=== PATIENT | female | born 1960 | race Caucasian/White ===

== ENCOUNTER 2018-04-11 21:55 | Emergency (ER) | payer OTHER, SELFPAY ==
[2018-04-11 22:04] VITALS: BP 152/89; PULSE 93; RESP 23; TEMP 37.1; O2SAT 96
[2018-04-11 22:15] VITALS: PULSE 93; RESP 23; TEMP 37.1; O2SAT 96; BMI 83.9
[2018-04-11 22:30] VITALS: BP 128/70; PULSE 82; RESP 23; O2SAT 95
--- NOTE | 2018-04-11 22:49 | DI.RAD.S_ITS ---
PROCEDURE: XR CHEST 2V INDICATIONS: sob, cough, wheeze on right TECHNIQUE: 2 views of the chest were acquired. COMPARISON: None. FINDINGS: Surgical changes and devices: None. Lungs and pleura: No pleural effusions or pneumothorax. Lungs are clear. Mediastinum: Mediastinal contours are normal. Heart size is normal. Bones and chest wall: No suspicious bony abnormalities. Soft tissues appear unremarkable. IMPRESSION: No acute cardiopulmonary disease. Dictated by: Luisana Mendosa M.D. on 04/12/2018 at 9:06 Approved by: Luisana Mendosa M.D. on 04/12/2018 at 9:06
--- NOTE | 2018-04-11 22:50 | ED_ITS ---
HPI - SOB/Dyspnea General Chief Complaint: Shortness of Breath/Dyspnea Stated Complaint: trouble breathing Time Seen by Provider: 04/11/18 22:34 Source: patient and family () Mode of arrival: ambulatory Limitations: no limitations History of Present Illness This is a 58-year-old female who comes to the emergency department with complaint of shortness of breath. Patient states symptoms started about the 19th she just felt sort of weird in her chest. She states started getting worse on the 20th Um and has continued to get worse. She feels short of breath , she has had a cut productive cough sometimes with clear sputum. Other times it is a dry cough. She has been a little bit hoarse. She has not had any fevers, no body aches. She has had some very mild edema in her lower extremities. She states it is little bit hard for her to lay flat. She has had a little bit of upper respiratory symptoms with some postnasal drip but no nasal congestion. She states today she was cooking with her family Um is around a lot of spices in the seem to exacerbate her symptoms. 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 She denies any past medical history. She states that she sees her doctor for some obesity. She has had a complete hysterectomy and her tonsils out but no other surgeries. She does smoke a pack of cigarettes every 1-2 days. Related Data Previous Rx's Medication Instructions Recorded prednisone 40 mg PO DAILY 3 Days #6 tab 04/11/18 Review of Systems Review of Systems All systems reviewed & are unremarkable except as noted in HPI and below Constitutional Denies body ache(s), Denies chills, Denies fever(s), Denies lethargy, Denies night sweats and Denies weakness Cardiovascular Denies chest pain, Denies syncope, Reports edema (Both legs), Denies irregular heart rhythm, Denies lightheadedness, Denies palpitations, Reports dyspnea, Reports dyspnea on exertion and Denies orthopnea Respiratory Denies change in phlegm color, Reports chest congestion, Reports cough, Denies hemoptysis, Denies pain on inspiration, Denies pain with cough, Reports dyspnea , Reports dyspnea on exertion, Denies stridor and Denies wheezing Gastrointestinal Gastrointestinal: Denies abdominal pain, Denies change in bowel habits, Denies diarrhea, Denies nausea and Denies vomiting Genitourinary Denies hematuria, Denies dysuria, Reports urinary incontinence (With cough) and Denies urinary urgency Neurologic Denies syncope and Denies weakness Endocrine Denies palpitations Allergic/Immunologic Denies wheezing PFSH Medical History Tobacco use (Acute) Surgical History Status post complete hysterectomy (Acute) Social History Smoking Status: Current every day smoker Exam Narrative Exam Narrative: GEN: well nourished, well appearing female, alert and oriented x 3, patient appears to be in mild distress. HEENT: Atraumatic, pupils are equal round reactive to light, extraocular movements are intact, nares are clear, TMs are clear with no fluid, there is no conjunctival pallor. Throat has some cobblestone without any exudates, erythema , tonsillar enlargement or uvular deviation HEART: Regular rate and rhythm without murmur, clicks, rubs. No edema bilateral lower extremities. LUNGS:Lungs are slightly decreased bilaterally, patient has wheeze and expiratory on the right upper and lower, she has some mild rales in the bases. chest moves symmetrically. Patient has some tachypnea that is mild. She speaks in full sentences. ABD:bowel sounds normal, soft, non-tender, no guarding, rebound, rigidity, no masses noted, no hepatosplenomegaly MSCL: Non-tender, no muscle atrophy, muscles strength 5/5 upper and lower extremities, full range of motion, normal gait NEURO:CN 2-12 intact, sensation normal Initial Vital Signs Initial Vital Signs: Vital Signs Temperature 98.8 F 04/11/18 22:04 Pulse Rate 93 H 04/11/18 22:04 Respiratory Rate 23 04/11/18 22:04 Blood Pressure 152/89 H 04/11/18 22:04 Pulse Oximetry 96 04/11/18 22:04 Course Orders Ordered: ED Orders 04/11/18 22:48 Consult to Respiratory Therapy Evaluate & Treat EKG-12 Lead Stat 04/11/18 22:49 XR chest 2V Stat 04/11/18 23:00 B Type Natriuretic Peptide Stat Basic Metabolic Panel Stat Complete Blood Count AUTO DIFF Stat Lactate (Lactic Acid) Stat Magnesium Stat Procalcitonin Stat Troponin & CK Cardiac Panel Stat Discontinued Medications Albuterol (Ventolin Hfa Prepack) 1 box MISC SEEINSTR ONE Stop: 04/11/18 23:48 Last Admin: 04/11/18 23:55 Dose: 1 box Albuterol/Ipratropium (Duoneb) 3 ml INH NOW ONE Stop: 04/11/18 22:47 Last Admin: 04/11/18 22:56 Dose: 3 ml Methylprednisolone (Solu-Medrol 125 Mg Vial) 125 mg IV NOW ONE Stop: 04/11/18 22:47 Last Admin: 04/11/18 23:04 Dose: 125 mg Vital Signs - 8 hr 04/11/18 22:04 04/11/18 22:15 04/11/18 22:30 Temperature 98.8 F 98.8 F Pulse Rate 93 H 93 H 82 Respiratory Rate 23 23 23 Blood Pressure Blood Pressure [Right Arm] 152/89 H 128/70 Pulse Oximetry 96 96 95 04/11/18 22:57 04/12/18 00:06 Temperature 98.8 F Pulse Rate 85 88 Respiratory Rate 20 Blood Pressure 140/85 Blood Pressure [Right Arm] Pulse Oximetry 95 94 MDM - SOB/Dyspnea Differential Diagnosis Likely acute exacerbation of chronic obstructive airways disease, congestive heart failure, community acquired pneumonia, pulmonary embolism and other ( bronchitis) Lab Data Attestation: I reviewed the patient's lab results. Result diagrams: 04/11/18 23:00 04/11/18 23:00 Lab Results 04/11/18 04/11/18 04/11/18 Range/Units 23:00 23:00 23:00 WBC 9.2 (4.5-11.0) X10^3/uL RBC 5.49 H (4.0-5.2) X10^6/uL Hgb 15.9 (12.0-16.0) g/dL Hct 48.1 H (36-46) % MCV 87.6 (80-100) fL MCH 29.0 (26-34) PG MCHC 33.1 (30-36) % RDW 14.4 (11.6-14.8) % Plt Count 214 (150-400) X10^3/uL Neut % (Auto) 60.1 (50-75) % Lymph % (Auto) 27.0 (25-40) % Oxford % (Auto) 10.8 (3-14) % Eos % (Auto) 1.4 L (2-4) % Baso % (Auto) 0.7 (0-2) % Neut # (Auto) 5500 (0588-3337) /uL Sodium 143 (137-145) mmol/L Potassium 4.1 (3.4-5.1) mmol/L Chloride 103 (98-107) mmol/L Carbon Dioxide 29 (22-32) mmol/L BUN 18 H (7-17) mg/dL Creatinine 0.80 (0.52-1.04) mg/dL Estimated GFR > 60.0 (>60) mL/min BUN/Creatinine Ratio 22.5 H (6-22) Glucose 102 H (70-100) mg/dL Lactate (0.7-2.1) mmol/L Calcium 9.4 (8.4-10.2) mg/dL Magnesium 2.0 (1.6-2.3) mg/dL Total Creatine Kinase 120 (30-135) U/L CK-MB (CK-2) 0.82 (<2.37) ng/mL CK-MB (CK-2) Rel Index 0.7 L (1.5-5.0) % Troponin I < 0.012 (0.01-0.034) ng/mL B-Natriuretic Peptide < 100 (<100) Procalcitonin < 0.05 (<0.5) ng/mL 04/11/18 Range/Units 23:00 WBC (4.5-11.0) X10^3/uL RBC (4.0-5.2) X10^6/uL Hgb (12.0-16.0) g/dL Hct (36-46) % MCV (80-100) fL MCH (26-34) PG MCHC (30-36) % RDW (11.6-14.8) % Plt Count (150-400) X10^3/uL Neut % (Auto) (50-75) % Lymph % (Auto) (25-40) % Oxford % (Auto) (3-14) % Eos % (Auto) (2-4) % Baso % (Auto) (0-2) % Neut # (Auto) (0946-1113) /uL Sodium (137-145) mmol/L Potassium (3.4-5.1) mmol/L Chloride (98-107) mmol/L Carbon Dioxide (22-32) mmol/L BUN (7-17) mg/dL Creatinine (0.52-1.04) mg/dL Estimated GFR (>60) mL/min BUN/Creatinine Ratio (6-22) Glucose (70-100) mg/dL Lactate 1.0 (0.7-2.1) mmol/L Calcium (8.4-10.2) mg/dL Magnesium (1.6-2.3) mg/dL Total Creatine Kinase (30-135) U/L CK-MB (CK-2) (<2.37) ng/mL CK-MB (CK-2) Rel Index (1.5-5.0) % Troponin I (0.01-0.034) ng/mL B-Natriuretic Peptide (<100) Procalcitonin (<0.5) ng/mL Imaging Data Chest x-ray: Attestation: I personally reviewed and interpreted this imaging study as follows: My impression: no infiltrate, no pulmonary edema, no pnuemothorax, normal alignment, no fx. ECG Data Attestation: I personally reviewed and interpreted this ECG as follows: Interpretation: sinus rhythm, rate of 81, qrs of 142, qtc of 416. No ST elevation, p wave in 2, 3 and avF large, v4-v6. MDM Narrative Medical decision making narrative: Patient's chest x-ray does not show any clear infiltrate. Patient was wheezy particularly on her right side which sustained to the initial x-ray. Lab work shows no major changes, and BNP and troponin are normal. Patient had mentioned she had had some slight swelling to extremities and felt worse when lying flat. Wheeze has resolved after neb treatment and she feels much better. Discussed with patient I think she has bronchitis. She has also smoker. Patient is given albuterol inhaler as well as a burst dose of prednisone for 3 days. Plan to have patient follow up outpatient with PCP. Patient is comfortable with the plan. Discharge Plan Departure Patient Disposition: Home Clinical Impression: Bronchitis Discharge Date/Time: 04/12/18 00:08 Interventions: ED Discharge Assessment Last Done: 04/12/18 00:06 Instructions: Acute Bronchitis Activity Restrictions/Additional Instructions: Follow-up with primary care in the next 3-5 days for recheck. Use albuterol 1 2 puffs every 4 hr as needed for wheezing or shortness of breath. Take steroids until completely gone. Return to the emergency department for fevers greater than 100.4, worsening shortness of breath, chest pain, nausea or persistent vomiting, new swelling of her lower extremities or other new or concerning symptoms. Prescriptions: New prednisone 20 mg tablet 40 mg PO DAILY 3 Days Qty: 6 RF: 0
[2018-04-11] MEDS: ALBUTEROL/IPRATROPIUM 3 ML AMPUL INH (22:56)
[2018-04-11 22:57] VITALS: PULSE 85; O2SAT 95
[2018-04-11] MEDS: methylPREDNISolone 125 MG/2 ML VIAL IV (23:04)
[2018-04-11 23:09] LABS: Add Manual Diff / Slide Review NO; Basophils Percent Auto 0.7 % (0-2); Eosinophils Percent Auto 1.4 % (2-4); Hematocrit 48.1 % (36-46); Hemoglobin 15.9 g/dL (12.0-16.0); Mean Corpuscular HGB Conc 33.1 % (30-36); Mean Corpuscular Volume 87.6 fL (80-100); Monocytes Percent Auto 10.8 % (3-14); Neutrophils Absolute Auto 5500 /uL (1500-7000); Neutrophils Percent Auto 60.1 % (50-75); Platelet Count 214 X10^3/uL (150-400); Red Blood Cell Count 5.49 X10^6/uL (4.0-5.2); Red Cell Distribution Width 14.4 % (11.6-14.8); White Blood Cell Count 9.2 X10^3/uL (4.5-11.0)
[2018-04-11 23:23] LABS: BUN Creatinine Ratio 22.5 (6-22); Blood Urea Nitrogen 18 mg/dL (7-17); Calcium 9.4 mg/dL (8.4-10.2); Carbon Dioxide 29 mmol/L (22-32); Chloride 103 mmol/L (98-107); Creatine Kinase 120 U/L (30-135); Estimated Glomerular Filt Rate > 60.0 mL/min (>60); Glucose 102 mg/dL (70-100); HEMOLYSIS < 15 (0-50); Potassium 4.1 mmol/L (3.4-5.1); Sodium 143 mmol/L (137-145)
[2018-04-11 23:26] LABS: B Type Natriuretic Peptide < 100 (<100)
[2018-04-11 23:36] LABS: Troponin I < 0.012 ng/mL (0.01-0.034)
[2018-04-11 23:37] LABS: Procalcitonin < 0.05 ng/mL (<0.5)
[2018-04-11 23:38] LABS: CKMB % Relative Index 0.7 % (1.5-5.0); Creatine Kinase MB 0.82 ng/mL (<2.37)
[2018-04-11] MEDS: ALBUTEROL HFA PREPACK 1 BOX MISC (23:55)
[2018-04-12 00:06] VITALS: BP 140/85; PULSE 88; RESP 20; TEMP 37.1; O2SAT 94
== END 2018-04-12 00:08 | disposition home or self-care (01) ==
PROVIDERS: Emergency Provider Emergency Medicine
DX: J40 Bronchitis, not specified as acute or chronic (principal)
CPT/HCPCS: 36591; 71046; 80048; 82550; 82553; 83605; 83735; 83880; 84145; 84484; 85025; 93005; 94640; 96374; 99283; 99285; J2930

== ENCOUNTER → 2023-04-23 18:46 | Outpatient (CLI) | payer OTHER, SELFPAY ==
--- NOTE | 2023-04-23 | DI.MRI.S_ITS ---
PROCEDURE: MR ANKLE RT WO CON INDICATIONS: INJURY RIGHT ANKLE TECHNIQUE: Noncontrast sagittal T1 spin echo and T2 fast spin echo with fat saturation, axial proton density fast spin echo and T2 fast spin echo with fat saturation, coronal T1 spin echo and T2 fast spin echo with fat saturation through the ankle/hindfoot. COMPARISON: None. FINDINGS: Image quality: Excellent. Bones and joints: There is mild osseous edema within the medial talus without a focal fracture line that may be related to traction trabecular bone injury or an osseous contusion osseous edema is also seen within the cuboid with suspected incomplete fracture of the distal plantar aspect. Mild osseous edema is seen at the 4th meta tarsal with some osseous irregularity at the metatarsal base that could represent a nondisplaced fracture. Moderate degenerative changes are seen at the 2nd tarsometatarsal joint with subchondral cystic changes and edema. No hindfoot coalitions. Focal high-grade cartilage loss is seen at the medial aspect of the mortise joint with mild adjacent edema. Nonedematous plantar calcaneal enthesophyte is present. Medial structures: Low-grade sprain of the deep fibers of the deltoid ligament. The spring ligament components are intact. Mild distal posterior tibialis tendinosis and tenosynovitis. The flexor digitorum longus and flexor hallucis longus tendons are intact. The posterior tibial neurovascular bundle appears normal within the tarsal tunnel, without extrinsic mass effect. Lateral structures: There is probable complete tearing of the anterior talofibular ligament and calcaneofibular ligament. Low-grade sprain of the posterior talofibular ligament. The anterior and posterior tibiofibular ligaments appear intact. There is moderate tendinosis and mild tenosynovitis of the peroneus brevis and longus tendons. The sinus tarsi demonstrates normal fatty signal. Anterior structures: The tibialis anterior, extensor hallucis longus, and extensor digitorum longus tendons appear intact. The dorsal talonavicular ligament appears intact. Posterior and plantar structures: Achilles tendon is intact there is thickening of the proximal plantar fascia with trace adjacent edema that may indicate acute on chronic plantar fasciitis. A nonedematous plantar calcaneal enthesophyte is present. No abductor digiti quinti muscle atrophy to suggest Pitts neuropathy. IMPRESSION: 1. Osseous edema and suspected incomplete fracture within the cuboid. Osseous edema within the adjacent 4th metatarsal base may be secondary to an osseous contusion or nondisplaced fracture. 2. Mild osseous edema is seen at the medial talus that may be secondary to traction trabecular bone injury or an osseous contusion. No focal fracture in this location. 3. Low-grade sprain of the deltoid ligament. 4. Complete tearing of the anterior talofibular ligament and calcaneofibular ligament. Low-grade sprain of the posterior talofibular ligament. 5. Moderate peroneus brevis and longus tendinosis and mild tenosynovitis. 6. Mild distal posterior tibialis tendinosis and tenosynovitis. 7. Mild acute on chronic proximal plantar fasciitis. No focal fascial tear. Approved by: Joseph Way M.D. on 04/24/2023 at 9:51
== END ==
LOC: MRI 18:48
PROVIDERS: PCP Family Medicine; Referring Provider Family Medicine; Visit Provider Family Medicine
DX: S99.811S Other specified injuries of right ankle, sequela (principal); S93.421A Sprain of deltoid ligament of right ankle, initial encounter; S93.491A Sprain of other ligament of right ankle, initial encounter; S93.411A Sprain of calcaneofibular ligament of right ankle, initial encounter; M65.871 Other synovitis and tenosynovitis, right ankle and foot; M72.2 Plantar fascial fibromatosis; R60.0 Localized edema; W10.8XXS Fall (on) (from) other stairs and steps, sequela
CPT/HCPCS: 73721

== ENCOUNTER 2023-07-31 22:46 | Emergency (ER) | payer OTHER, SELFPAY ==
[2023-07-31 22:50] VITALS: BP 179/86; PULSE 91; RESP 18; TEMP 36.2; O2SAT 100; BMI 42.5
--- NOTE | 2023-07-31 23:51 | ED.BACK ---
HPI - Back Pain/Injury General Chief Complaint: Back Pain/Injury Stated Complaint: Severe pain back ribs from cough Time Seen by Provider: 07/31/23 23:24 Source: patient History of Present Illness HPI Narrative: 63-year-old female presents for left-sided rib pain. Patient reports upper respiratory infection several weeks ago and thinks she may have strained her side while coughing. Earlier this evening her pain intensified and she was concerned that she may have dislodged a rib or injured something. Took ibuprofen and CBD gummy prior to arrival. Related Data Allergies Allergy/AdvReac Type Severity Reaction Status Date / Time No Known Drug Allergies Allergy Verified 07/31/23 22:50 Review of Systems Review of Systems Narrative: Negative except as noted above Patient History Medical History Tobacco use Surgical History (Updated 04/11/18 @ 22:55 by Anita Montalvo DO) Status post complete hysterectomy Social History Smoking Status: Current every day smoker Smoking Status: Current every day smoker tobacco type: cigarettes alcohol intake frequency: a few times a week Alcohol type: wine Substance Use Type: marijuana Exam Initial Vital Signs Initial Vital Signs: Vital Signs Temperature 97.2 F L 07/31/23 22:50 Pulse Rate 91 H 07/31/23 22:50 Respiratory Rate 18 07/31/23 22:50 Blood Pressure 179/86 H 07/31/23 22:50 Pulse Oximetry 100 07/31/23 22:50 Oxygen Delivery Method Room Air 07/31/23 22:50 Const: Awake, alert, no acute distress, nontoxic appearing Chest: Isolated tenderness to palpation along lower left ribs along mid axillary line, no crepitus MSK: Atraumatic, full range of motion, pulses equal Skin: Warm, Dry, intact, no rashes Neuro: AO x3, CN II-XII grossly intact, moves all extremities Course Orders Ordered: Discontinued Medications Hydrocodone Bitart/Acetaminophen (Hydrocodone/Acet 5/325 Prepack) 1 bottle MISC DIRECTED ONE Stop: 08/01/23 01:47 Last Admin: 08/01/23 01:52 Dose: Not Given Documented By: GRICELDA Oxycodone HCl (Oxycodone Ir 5 Mg Tablet) 5 mg PO NOW ONE Stop: 07/31/23 23:52 Last Admin: 08/01/23 00:03 Dose: 5 mg Documented By: GRICELDA Vital Signs Vital signs: Vital Signs - 8 hr 07/31/23 22:50 Temperature 97.2 F L Pulse Rate 91 H Respiratory Rate 18 Blood Pressure 179/86 H Pulse Oximetry 100 Oxygen Delivery Method Room Air MDM - Back Pain/Injury Differential Diagnosis Differential diagnosis: Likely sciatica, strain of lumbar region and thoracic back pain Imaging Data Extremity x-ray #1: Radiologist's Impression: PROCEDURE: XR RIBS LT MIN 3V W CXR1V INDICATIONS: L RIB PAIN TECHNIQUE: 2 views of the ribs were acquired, along with a single view chest. COMPARISON: None. FINDINGS: Surgical changes and devices: None. Bones and chest wall: No fractures or dislocations. No suspicious bony lesions. Overlying soft tissues appear unremarkable. Lungs and pleura: No pleural effusions or pneumothorax. Lungs appear clear. Mediastinum: Mediastinal contours appear normal. Heart size is normal. IMPRESSION: No displaced rib fracture or pneumothorax. Dictated by: Luisana Mendosa M.D. on 08/01/2023 at 2:09 Approved by: Luisana Mendosa M.D. on 08/01/2023 at 2:10 MDM Narrative Medical decision making narrative: Left-sided rib pain after upper respiratory infection. Patient was tender to palpation along the mid axillary portion of left lower ribs, however there was no crepitus or deformity to suggest acute fracture. Rib series negative for acute fracture. Patient declined pain medications, stating that she has leftover pain meds from a previous fracture at home. Discharge Plan Departure Patient Disposition: Home Clinical Impression: Pain in rib Instructions: DI for Rib Contusion Activity Restrictions/Additional Instructions: Your x-ray still has not been read by Radiology. I will call you if there are any abnormalities. You may take the prepack medication along with ibuprofen for pain, you can also try to apply lidocaine patches to the areas of pain. Referrals: Susan Pal DO [Primary Care Provider] - Stand Alone Forms: Patient Portal/API
[2023-08-01] MEDS: OXYCODONE IR 5 MG TABLET PO (00:03)
--- NOTE | 2023-08-01 01:30 | PC.NURSE ---
pt requesting to leave, Dr Valera informed and in to speak with pt, will call pt regarding xrays if needed
== END 2023-08-01 01:54 | disposition home or self-care (01) ==
PROVIDERS: Emergency Provider Emergency Medicine; PCP Family Medicine
DX: R07.81 Pleurodynia (principal)
CPT/HCPCS: 71101; 99283